=== PATIENT | male | born 1950 | race Caucasian/White ===

== ENCOUNTER 2017-11-14 06:34 | Inpatient (IN) ==
[~2017-11-14 06:34] MED LIST: Dextrose 50 % in Water (Vial) 30 ML, Sodium Bicarbonate 20 MEQ, Lidocaine 1% 5 ML, Insu... TH ONE; Dextrose 50 % in Water (Vial) 30 ML, Sodium Bicarbonate 20 MEQ, Potassium Chloride 15 M... TH ONE; Heparin 15,000 UNIT in 0.9 % Sodium Chloride 500 ML IV ONE; Insulin Human Regular 100 UNIT in 0.9 % Sodium Chloride 100 ML IV PRN; Norepinephrine 4 MG in D5% in Water 250 ML IVC PRN
[2017-11-14] MEDS ORDERED: Clindamycin 900 MG/50 ML 900 MG/50 ML IV.SOLN IVPB ONE (06:57)
[2017-11-14] MEDS ORDERED: Albuterol 2.5 MG/3 ML NEBULIZER IH ONE (06:57)
[2017-11-14] MEDS ORDERED: Famotidine 20 MG/2 ML VIAL ONE (07:00)
[2017-11-14] MEDS ORDERED: *HR* Rocuronium Bromide 50 MG/5 ML VIAL ONE (07:00)
[2017-11-14] MEDS ORDERED: *HR* PHENYLEPHRINE 1,000 MCG/10 ML SYRINGE IVP ONE (07:00)
[2017-11-14] MEDS ORDERED: *HR* Etomidate 20 MG/10 ML AMPUL IVP ONE (07:00)
[2017-11-14] MEDS ORDERED: *HR* Midazolam HCl 5 MG/5 ML VIAL IVP ONE ×2 (07:07→11:11)
[2017-11-14] MEDS ORDERED: Tranexamic Acid 1,000 MG/10 ML VIAL ONE ×2 (07:07→10:16)
[2017-11-14] MEDS ORDERED: Protamine Sulfate 250 MG/25 ML VIAL IVP ONE (07:07)
[2017-11-14] MEDS ORDERED: *HR* FentaNYL (PF) 1,000 MCG/20 ML VIAL ONE (07:07)
[2017-11-14] MEDS: Chlorhexidine Rinse 15 ML MOUTHWASH MM SCH ×3 (07:08→21:52)
[2017-11-14] MEDS: Ringers Solution, Lactated 1,000 ML IVC SCH (07:09)
[2017-11-14] MEDS ORDERED: Nitroglycerin 25 MG/250 ML INFUS..BTL IVC ONE (07:11)
[2017-11-14] MEDS ORDERED: *HR* Phenylephrine 10 MG/ML VIAL IVC ONE (07:14)
[2017-11-14] MEDS ORDERED: *HR* Heparin 10,000 UNIT/10 ML VIAL IV ONE (07:14)
[2017-11-14] MEDS ORDERED: *HR* Magnesium Sulfate 2 GM/50 ML PIGGYBACK IVPB ONE (07:14)
[2017-11-14] MEDS ORDERED: Mannitol 25% vial 12.5 GM/50 ML VIAL IVP ONE (07:14)
[2017-11-14] MEDS ORDERED: Clindamycin 600 MG/50 ML IV.SOLN IVPB ONE (07:14)
[2017-11-14] MEDS ORDERED: Albumin Human 25% 25 GM/100 ML IV.SOLN IV ONE (07:14)
[2017-11-14] MEDS ORDERED: Lidocaine 2% Syringe 100 MG/5 ML IV ONE (07:14)
[2017-11-14] MEDS ORDERED: Tranexamic Acid 1,000 MG/10 ML VIAL IVPB ONE (07:14)
--- NOTE | 2017-11-14 07:32 | Anesthesia Evaluation PreOp ---
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 (left foot drop) Other Medical History: Denies Any Significant HX Anesthesia History: No Prior Anesthetic Complications, Past Anesthesia (tonsils) Alcohol Use: none Drug use: unknown Medications and Allergies Amlodipine Besylate 10 mg PO DAILY 11/04/17 [History] Aspirin [Lo-Dose Aspirin EC] 81 mg PO DAILY 11/04/17 [History] Clopidogrel [Plavix] 75 mg PO DAILY 11/04/17 [History] Lisinopril [Zestril] 40 mg PO DAILY 11/04/17 [History] Metoprolol XL (24 HR) Succ [Toprol XL] 50 mg PO DAILY 11/04/17 [History] hydroCHLOROthiazide [Hydrochlorothiazide] 25 mg PO DAILY 11/04/17 [History] Nitroglycerin [Nitrostat] 0.4 mg SL Q5M PRN MDD 3 DOSES CALL 911 11/14/17 [ History] Rosuvastatin [Crestor] 20 mg PO HS 11/14/17 [History] 3 Allergy/AdvReac Type Severity Reaction Status Date / Time Penicillins [PCN] AdvReac Rash Verified 11/14/17 07:03 - Meds/Allergy Pre-op Review Medications Reviewed: Yes Allergies Reviewed: Yes If Beta Blockers taken, Date/Time (Last Dose taken): today 0500 Anesthesia Results - Labs Laboratory Tests 11/02/17 11/02/17 14:28 14:28 Hgb 14.9 Hct 44.0 Plt Count 228 Sodium 140 Potassium 3.6 BUN 17 Creatinine 0.90 - Imaging Additional studies: cath: Impressions: There is severe three vessel coronary artery disease. The left ventricle is normal and has normal contractility EF 55% There is fair quality collateral vessel/vessels from the Distal Circumflex to the Right PDA that are visualized. Stent placed from a prior procedure in the Mid LAD is is patent. echo: Impressions: LVEF 55%. Mild LV segmental wall motion abnormality. Mildly dilated left ventricle. Moderate left ventricular diastolic dysfunction. Normal right ventricular structure and function. Mild mitral regurgitation. No pulmonary hypertension. Mild elevation of RA pressures. 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
--- NOTE | 2017-11-14 07:35 | History & Physical Report ---
Date of Encounter: 11/14/17 Time of Encounter: 07:35 24 Hour HP Update - Instructions Instructions: If the History and Physical is less than 30 days old and was completed prior to A.M. admission and or procedure and has NOT been updated on calendar day of procedure please complete this update prior to performing procedure. - Update Patient reports changes in Medical Condition: No Changes in examination, assessment, or condition: No Changes in Medication: No Preop tests/diagnostics Reviewed: Yes Pre-Op MRSA Screen: Negative Surgery Remains Indicated: Yes Consent for Planned Operative Procedure(s) Verified: Yes - Pre-Operative Checklist Preoperative Checklist Indicated: Yes Prophylactic Antibiotic Ordered: Yes Home Medications Include Beta Toby: Yes Beta Toby Taken Today (Day of Surgery): Yes Beta Toby Taken Yesterday (Day Prior to Surgery): Yes Is VTE Prophylaxis Indicated?: Yes
[2017-11-14] MEDS ORDERED: Verapamil 5 MG/2 ML VIAL ONE (07:44)
[2017-11-14 08:33] LABS: ABG Base Excess 2 mEq/L (-2 to 3); ABG Chloride 106 mEq/L (98-107); ABG Glucose 128 mg/dL (60-95); ABG HCO3 29 mEq/L (21-27); ABG Ionized Calcium 1.16 mmol/L (1.15-1.35); ABG Oxygen Saturation 100 % (95-98); ABG PCO2 49 mmHg (35-45); ABG PH 7.37 pH Units (7.32-7.45); ABG PO2 195 mmHg (85-104); ABG TCO2 30 mEq/L (20-26)
--- NOTE | 2017-11-14 09:19 | Anesthesia Procedures ---
Date of Encounter: 11/14/17 Time of Encounter: 08:05 Procedures: Anesthesia - Arterial Line Consent obtained: written consent Time out performed: Yes Sedation: Versed (mg): 2 Sedation: Fentanyl (mcg): 100 Supplemental Oxygen via Nasal Cannula (L/min): 2 Local Anesthetic: Lidocaine 1% Amount of Anesthetic used (mls): 1 Size (Gauge): 20 Length (inches): 5 Technique Used: sterile prep, guide wire technique, direct puncture technique Post-Procedure: line taped into place, dry sterile dressing placed Patient tolerated procedure: well, no complications Complications: none Site: Radial L - Central Line Placement Right IJ Consent obtained: written consent Time out performed: Yes Patient placed on monitor/pulse ox: Yes prep: mask, gown, gloves Central line prep: Chlorhexidine scrub Ultrasound used for placement: Yes Technique: Seldinger Lumen Inserted: Introducer Post procedure: sutured in place, good blood return, all ports aspirated, flushed, capped, sterile dressing applied Patient tolerated procedure: well, no complications Complications: none (INTRODUCER PLACED EASILY, SWAN PLACED WITHOUT ARRYTHMIA, WEDGE APPROX. 55CM)
[2017-11-14 09:35] LABS: ABG Base Excess -2 mEq/L (-2 to 3); ABG Chloride 106 mEq/L (98-107); ABG Glucose 161 mg/dL (60-95); ABG HCO3 23 mEq/L (21-27); ABG Ionized Calcium 0.91 mmol/L (1.15-1.35); ABG Oxygen Saturation 99 % (95-98); ABG PCO2 36 mmHg (35-45); ABG PH 7.41 pH Units (7.32-7.45); ABG PO2 115 mmHg (85-104); ABG TCO2 24 mEq/L (20-26)
[2017-11-14 10:13] LABS: ABG Base Excess 4 mEq/L (-2 to 3); ABG Chloride 96 mEq/L (98-107); ABG Glucose 208 mg/dL (60-95); ABG HCO3 29 mEq/L (21-27); ABG Ionized Calcium 0.96 mmol/L (1.15-1.35); ABG PCO2 40 mmHg (35-45); ABG PH 7.46 pH Units (7.32-7.45); ABG PO2 > 630 mmHg (85-104); ABG TCO2 30 mEq/L (20-26)
[2017-11-14 10:55] LABS: ABG Base Excess 4 mEq/L (-2 to 3); ABG Chloride 95 mEq/L (98-107); ABG Glucose 188 mg/dL (60-95); ABG HCO3 28 mEq/L (21-27); ABG Ionized Calcium 0.97 mmol/L (1.15-1.35); ABG Oxygen Saturation 100 % (95-98); ABG PCO2 42 mmHg (35-45); ABG PH 7.43 pH Units (7.32-7.45); ABG PO2 586 mmHg (85-104); ABG TCO2 30 mEq/L (20-26)
[2017-11-14 11:26] LABS: ABG Base Excess 1 mEq/L (-2 to 3); ABG Chloride 100 mEq/L (98-107); ABG Glucose 149 mg/dL (60-95); ABG HCO3 25 mEq/L (21-27); ABG Ionized Calcium 1.21 mmol/L (1.15-1.35); ABG Oxygen Saturation 96 % (95-98); ABG PCO2 40 mmHg (35-45); ABG PH 7.41 pH Units (7.32-7.45); ABG PO2 78 mmHg (85-104); ABG TCO2 26 mEq/L (20-26)
[2017-11-14] MEDS ORDERED: Potassium Chloride 40 MEQ/200 ML BAG IVPB PRN (11:44)
[2017-11-14] MEDS ORDERED: Insulin Regular, Human 100 UNIT/ML IV PRN (11:44)
[2017-11-14] MEDS ORDERED: Ondansetron 4 MG/2 ML VIAL IVP PRN (11:44)
[2017-11-14] MEDS ORDERED: Acetaminophen 325 MG TABLET PO PRN (11:44)
[2017-11-14] MEDS ORDERED: *HR* Promethazine 25 MG/ML VIAL IVP PRN (11:44)
[2017-11-14] MEDS ORDERED: *HR* Dextrose 50 % in Water (Syg) 50 ML SYRINGE IVP PRN (11:44)
[2017-11-14] MEDS ORDERED: Insulin Human Regular 100 UNIT in 0.9 % Sodium Chloride 100 ML IVC SCH (11:45)
[2017-11-14] MEDS ORDERED: Norepinephrine 4 MG in D5% in Water 250 ML IVC SCH (11:45)
[2017-11-14 12:12] LABS: ABG Base Excess 2 mEq/L (-2 to 3); ABG HCO3 27 mEq/L (21-27); ABG Oxygen Saturation 99 % (95-98); ABG PCO2 40 mmHg (35-45); ABG PH 7.44 pH Units (7.32-7.45); ABG PO2 122 mmHg (85-104); ABG TCO2 28 mEq/L (20-26); Blood Gas Modality VC; Blood Gas PEEP 5 cm H2O; Blood Gas Respiration Rate 10; Blood Gas VT 700 cc
[2017-11-14 12:25] LABS: Basophils # 0.1 K/mcL (0.0-0.2); Basophils % 0.4 %; Eosinophils # 0.3 K/mcL (0.0-0.6); Eosinophils % 1.8 %; Hematocrit 33.9 % (37.5-50.1); Hemoglobin 11.7 g/dL (12.9-16.9); Immature Granulocytes % 0.7 % (0-4); Lymphocytes # 2.5 K/mcL (0.6-4.6); Lymphocytes % 16.1 %; Mean Corpuscular HGB Conc 34.5 g/dL (31.6-35.5); Mean Corpuscular Volume 89.7 fL (83.0-100.0); Mean Platelet Volume 9.7 fL (9.4-12.4); Monocytes # 1.1 K/mcL (0.0-1.3); Monocytes % 7.3 %; Neutrophils # 11.3 K/mcL (1.6-8.9); Platelet Count 145 K/mcL (140-400); Red Blood Count 3.78 M/mcL (4.19-5.50); Red Cell Distribution Width 13.3 % (11.5-14.5); Segmented Neutrophils % 73.7 %
[2017-11-14] MEDS: 0.9 % Sodium Chloride 1,000 ML IVC SCH (12:30)
[2017-11-14] MEDS: Nitroglycerin 25 MG/250 ML INFUS..BTL IVC SCH (12:31)
[2017-11-14 12:34] LABS: Activated Partial Thrombo Time 29.5 Seconds (26.0-36.0); INR 1.5
[2017-11-14 12:39] LABS: BUN/Creatinine Ratio 15 (6-26); Blood Urea Nitrogen 13 mg/dL (8-23); Calcium 8.7 mg/dL (8.6-10.3); Carbon Dioxide 27 mEq/L (23-29); Chloride 105 mEq/L (98-107); Glucose 85 mg/dL (70-105); Magnesium 2.5 mg/dL (1.6-2.6); Osmolality,Calculated 287 (280-300); Potassium 3.3 mEq/L (3.5-5.1); Sodium 139 mEq/L (136-145); eGFR For Non-African Americans > 60 (> 60)
[2017-11-14] MEDS: *HR* FentaNYL (PF) 100 MCG/2 ML VIAL IVP PRN ×5 (13:17→23:51)
--- NOTE | 2017-11-14 13:45 | Operative Note ---
Date of procedure: 11/14/17 Was there an student assistant present: Yes Barber Stylist: Juanjose Larry Estimated blood loss (cc): 750 Specimen: none Condition: critical Disposition: ICU Procedure in Detail: Preoperative diagnosis. Coronary artery disease. Postoperative diagnosis. Same. Procedures. Coronary artery bypass grafting 3 with the left internal mammary artery to the LAD and a sequential saphenous vein graft to obtuse marginal branch #1 and obtuse marginal branch #3 of the circumflex coronary artery. Surgeon. Dr. Lisandro Bragg. The patient is a 67-year-old gentleman with a history of diabetes. He presented with coronary artery disease and was referred for surgery. He was brought to the operating room where he he was prepped and draped in standard fashion. The right greater saphenous vein was harvested from below the right knee to the right groin. This was done through 2 small incisions using the scope. These incisions were subsequently closed using a deep layer of 0 Vicryl and a 2-0 Vicryl subcuticular stitch. Standard median sternotomy was performed. The left internal mammary artery retractor was inserted and the left internal mammary artery was harvested in standard fashion using the Bovie electrocoagulation. Following this, the mammary retractor was removed and the standard sternal music agent was inserted. Pericardium was opened in the midline and suspended with 2-0 silk stay sutures. Double pursestring of 200 Surgilon was placed in the aorta for the aortic cannulation site. Pursestring of 20 Surgilon was placed in the right atrial appendage for the venous uptake. The patient was heparinized. The aorta was cannulated without difficulty. 2 stage venous uptake cannula was inserted through the right atrial appendage. A pursestring of 3-0 silk was placed in the aorta and the cardioplegia needle was inserted through here. This was also used is an active and passive aortic vent. The patient was placed on cardiopulmonary bypass and cooled to 34.8 degrees. At this point, the aorta was crossclamped and a liter of cardioplegia was given. Attention was first turned to the circumflex. Obtuse marginal branch #3 was dissected free with the Cahto blade and opened with the Cahto blade and the Elias scissors. This had a lumen of 1-1/2 mm and was relatively free of disease. A standard end-to- side anastomosis was constructed using the saphenous vein and a 7-0 Prolene. When this is completed, the patient received an additional dose of antegrade cardioplegia. Obtuse marginal branch #1 of the circumflex was dissected free with the Cahto blade and opened with the Cahto blade and the Elias scissors. The saphenous vein was distended and a hole was made in its side using a #11 blade. A [id number] anastomosis was constructed using the saphenous vein and a 7-0 Prolene. Thus the graft went from the aorta to obtuse marginal branch #1 of the circumflex and from there to obtuse marginal branch #3 of the circumflex. At this point, the patient received the last dose of antegrade cardioplegia. I dissected the LAD distal to the stent. It was opened with a Cahto blade and the Elias scissors and was found to have moderate to severe diffuse disease. A 1 probe passed proximally to the area of the stent and distally to the apex of the heart. A standard end-to-side anastomosis was constructed using the mammary artery and a 7-0 Prolene. When this is completed , the previously placed bulldog clamp was removed and hemostasis was good. Pedicles tacked surface of heart using 2 interrupted 5-0 silk sutures. Cross- clamp was removed and rewarming was begun. Total cross-clamp time was 47 minutes. A side-biting clamp was placed on the aorta and the cardioplegia needle was removed. A hole was made in the aorta using the Cahto blade and the 4.4 mm aortic punch. A standard end-to-side anastomosis was constructed using the saphenous vein and a 5-0 Prolene. When this is completed, the side- biting clamp was removed. The graft was de-aired is #25-gauge needle and the previously placed bulldog clamp was removed. The proximal anastomosis was marked with a marker from [employer]. Distal anastomoses were inspected and found to be hemostatic. I did place some FloSeal and fibrillar around the distal and proximal anastomoses. A pair of ventricular pacing wires was left. A total of 3 chest tubes were left. A 32 right angle chest tube to the pericardial well. A 32 right lateral chest tube to the left pleural space. A 42 mediastinal chest tube. The patient was weaned from bypass requiring no pressors for support. He was decannulated and protamine was given. Hemostasis was good and the hemodynamics were good. Pericardium was left open. Sternum was closed with #7 sternal wires in simple and [id number] fashion. Fascia was run with #1 Vicryl. We did use platelet rich and platelet poor plasma on the sternum and tissues above the sternum. Subcutaneous tissues were closed with a 2-0 Vicryl. Skin was closed with a 3-0 Vicryl subcuticular stitch. The patient tolerated the procedure well and was returned intensive care unit in satisfactory and stable condition. Total bypass time was 70 minutes. Total cross-clamp time was 47 minutes. He had been cooled to 34.8 degrees.
[2017-11-14 16:10] LABS: ABG Base Excess 2 mEq/L (-2 to 3); ABG HCO3 25 mEq/L (21-27); ABG Oxygen Saturation 98 % (95-98); ABG PCO2 32 mmHg (35-45); ABG PO2 87 mmHg (85-104); ABG TCO2 26 mEq/L (20-26); Blood Gas Modality VC; Blood Gas PEEP 5 cm H2O; Blood Gas Respiration Rate 10; Blood Gas VT 700 cc
[2017-11-14] MEDS: Clindamycin 900 MG/50 ML 900 MG/50 ML IV.SOLN IVPB SCH ×2 (17:04→23:51)
[2017-11-14] MEDS: *HR* OxyCODONE/APAP 5/325 TABLET PO PRN ×2 (17:27→21:51)
[2017-11-14 18:01] LABS: ABG Base Excess 3 mEq/L (-2 to 3); ABG HCO3 27 mEq/L (21-27); ABG Oxygen Saturation 95 % (95-98); ABG PCO2 40 mmHg (35-45); ABG PH 7.44 pH Units (7.32-7.45); ABG PO2 76 mmHg (85-104); ABG TCO2 28 mEq/L (20-26); Blood Gas Modality CPAP/PS; Blood Gas PEEP 5 cm H2O; Blood Gas Pressure Support 10 cm H2O
[2017-11-14] MEDS: niCARdipine 40 MG/200 ML MLS IVC SCH ×2 (19:21→19:22)
[2017-11-14 19:27] LABS: ABG Base Excess 3 mEq/L (-2 to 3); ABG HCO3 27 mEq/L (21-27); ABG Oxygen Saturation 96 % (95-98); ABG PCO2 41 mmHg (35-45); ABG PH 7.44 pH Units (7.32-7.45); ABG PO2 76 mmHg (85-104); ABG TCO2 29 mEq/L (20-26)
[2017-11-15] MEDS: *HR* FentaNYL (PF) 100 MCG/2 ML VIAL IVP PRN ×3 (01:43→06:16)
[2017-11-15] MEDS: 0.9 % Sodium Chloride 1,000 ML IVC SCH (02:18)
[2017-11-15] MEDS: Nitroglycerin 25 MG/250 ML INFUS..BTL IVC SCH ×2 (02:18→03:27)
[2017-11-15] MEDS: Ringers Solution, Lactated 1,000 ML IVC SCH (02:32)
[2017-11-15] MEDS: niCARdipine 40 MG/200 ML MLS IVC SCH (02:32)
[2017-11-15] MEDS: *HR* OxyCODONE/APAP 5/325 TABLET PO PRN ×5 (02:33→20:02)
[2017-11-15 04:27] LABS: Basophils % 0.2 %; Hematocrit 32.6 % (37.5-50.1); Hemoglobin 10.9 g/dL (12.9-16.9); Immature Granulocytes % 0.4 % (0-4); Lymphocytes # 1.1 K/mcL (0.6-4.6); Lymphocytes % 7.1 %; Mean Corpuscular HGB Conc 33.4 g/dL (31.6-35.5); Mean Corpuscular Volume 89.8 fL (83.0-100.0); Mean Platelet Volume 9.8 fL (9.4-12.4); Monocytes # 1.4 K/mcL (0.0-1.3); Monocytes % 8.6 %; Neutrophils # 13.2 K/mcL (1.6-8.9); Platelet Count 183 K/mcL (140-400); Red Blood Count 3.63 M/mcL (4.19-5.50); Red Cell Distribution Width 13.8 % (11.5-14.5); Segmented Neutrophils % 83.7 %
[2017-11-15 04:35] LABS: INR 1.2; Prothrombin Time 13.5 Seconds (9.4-12.1)
[2017-11-15 04:44] LABS: BUN/Creatinine Ratio 16 (6-26); Blood Urea Nitrogen 18 mg/dL (8-23); Calcium 8.4 mg/dL (8.6-10.3); Carbon Dioxide 24 mEq/L (23-29); Chloride 107 mEq/L (98-107); Glucose 161 mg/dL (70-105); Magnesium 2.1 mg/dL (1.6-2.6); Osmolality,Calculated 291 (280-300); Potassium 3.6 mEq/L (3.5-5.1); Sodium 138 mEq/L (136-145); eGFR For Non-African Americans > 60 (> 60)
[2017-11-15] MEDS ORDERED: 0.9 % Sodium Chloride 500 ML ONE (06:07)
--- NOTE | 2017-11-15 07:32 | Cardiothoracic Progress Note ---
Date of Encounter: 11/15/17 Time of Encounter: 07:29 - Assessment and plan (1) Coronary artery disease Current Visit: No Status: Acute The assessment and plan as outlined above was discussed with the patient and/or family members who expressed understanding and agreement. All questions were answered. The chest tubes and pacing wires were removed. We will discontinue the [place]- Juma catheter, IV fluids, arterial line and Caputo. We will check a stat portable chest x-ray. We will transfer the patient to the floor when a bed becomes available. We will give 1 dose of Lasix IV. Qualifiers: - Subjective Interval history: The patient is extubated and complains of mild postoperative pain. Vital Signs, Last 4 Hours Temp Pulse Resp BP Pulse Ox 11/15/17 07:03 99.2 F 92 14 121/7 91 11/15/17 06:00 99.2 F 93 16 119/62 90 11/15/17 05:00 99.2 F 89 16 116/59 95 11/15/17 04:00 99.2 F 97 16 118/61 92 11/15/17 03:39 16 114/62 92 Oxgyen Flow Rate Oxygen Flow Rate (LPM) 4 Clinical Data, last 8 Hours Output, Chest Tube Drainage 0 Amount [Mediastinal #3] Output, Chest Tube Drainage 0 Amount [Mediastinal #3] Output, Chest Tube Drainage 0 Amount [Mediastinal #3] Output, Chest Tube Drainage 14 Amount [Mediastinal #3] Output, Chest Tube Drainage 7 Amount [Mediastinal #3] Output, Chest Tube Drainage 3 Amount [Mediastinal #3] Output, Chest Tube Drainage 3 Amount [Mediastinal #3] Output, Chest Tube Drainage 22 Amount [Mediastinal #2] Output, Chest Tube Drainage 0 Amount [Mediastinal #2] Output, Chest Tube Drainage 4 Amount [Mediastinal #2] Output, Chest Tube Drainage 6 Amount [Mediastinal #2] Output, Chest Tube Drainage 20 Amount [Mediastinal #2] Output, Chest Tube Drainage 12 Amount [Mediastinal #2] Output, Chest Tube Drainage 10 Amount [Mediastinal #2] Output, Chest Tube Drainage 0 Amount [Mediastinal #1] Output, Chest Tube Drainage 0 Amount [Mediastinal #1] Output, Chest Tube Drainage 0 Amount [Mediastinal #1] Output, Chest Tube Drainage 6 Amount [Mediastinal #1] Output, Chest Tube Drainage 4 Amount [Mediastinal #1] Output, Chest Tube Drainage 0 Amount [Mediastinal #1] Output, Chest Tube Drainage 0 Amount [Mediastinal #1] Weight 11/13/17 11/14/17 11/15/17 23:59 23:59 23:59 Weight 99.79 kg 100.4 kg Lungs are clear to percussion and auscultation. Heart is in a normal sinus rhythm. All incisions are healing well without signs of infection and the sternum is stable. Chest x-ray shows no acute process. - Labs 11/15/17 04:05 11/15/17 04:05 Lab Results, Last 24 hours 11/14/17 11/14/17 11/14/17 12:05 12:05 12:05 WBC 15.3 H Hgb 11.7 L Hct 33.9 L Plt Count 145 INR 1.5 APTT 29.5 Sodium 139 Potassium 3.3 L Chloride 105 Carbon Dioxide 27 BUN 13 Creatinine 0.88 Glucose 85 Calcium 8.7 Magnesium 2.5 11/14/17 11/15/17 11/15/17 16:03 04:05 04:05 WBC 15.7 H Hgb 10.9 L Hct 32.6 L Plt Count 183 INR 1.2 APTT 27.0 Sodium Potassium 3.1 L Chloride Carbon Dioxide BUN Creatinine Glucose Calcium Magnesium 11/15/17 04:05 WBC Hgb Hct Plt Count INR APTT Sodium 138 Potassium 3.6 Chloride 107 Carbon Dioxide 24 BUN 18 Creatinine 1.13 Glucose 161 H Calcium 8.4 L Magnesium 2.1 - VTE Documentation of Mechanical Device: Graduated compression elastic hosiery Consult Discharge Plan - Plan Referrals: Pedro Valdez CNP [Primary Care Provider] -
[2017-11-15] MEDS ORDERED: Furosemide 20 MG/2 ML VIAL IVP ONE (07:34)
[2017-11-15] MEDS: Chlorhexidine Rinse 15 ML MOUTHWASH MM SCH ×4 (07:53→20:03)
[2017-11-15] MEDS ORDERED: Ondansetron 4 MG/2 ML VIAL IVP PRN (08:21)
[2017-11-15] MEDS ORDERED: *HR* Dextrose 50 % in Water (Syg) 50 ML SYRINGE IVP PRN (08:21)
[2017-11-15] MEDS ORDERED: *HR* Promethazine 25 MG/ML VIAL IVP PRN (08:21)
[2017-11-15] MEDS ORDERED: Acetaminophen 325 MG TABLET PO PRN (08:21)
[2017-11-15] MEDS ORDERED: Nitroglycerin 0.4 MG TAB.SUBL SL PRN (08:21)
[2017-11-15] MEDS ORDERED: D5% in Water 1,000 ML IVC PRN (08:21)
[2017-11-15] MEDS ORDERED: Dextrose Gel 15 GM/37.5 ML TUBE PO PRN ×2 (08:21)
[2017-11-15] MEDS: Metoprolol XL (24 HR) Succ 50 MG TAB.ER.24H PO SCH (08:40)
[2017-11-15] MEDS: hydroCHLOROthiazide 25 MG TABLET PO SCH (08:40)
[2017-11-15] MEDS: Aspirin Enteric Coated 81 MG Tablet PO SCH (08:40)
[2017-11-15] MEDS: amLODIPine 5 MG TABLET PO SCH (08:40)
[2017-11-15] MEDS: Lisinopril 20 MG TABLET PO SCH (08:40)
[2017-11-15] MEDS: Insulin LISPRO 300 UNITS/3 ML VIAL SQ SCH ×3 (12:37→21:45)
--- NOTE | 2017-11-15 15:07 | Anesthesia Evaluation Post Op ---
Date of Encounter: 11/15/17 Time of Encounter: 12:00 - Vital Signs Vital Signs: Selected Entries 11/15/17 11:26 11/15/17 12:00 Temperature 99.0 F Pulse Rate 92 Respiratory Rate 16 Blood Pressure 124/86 O2 Sat by Pulse Oximetry 92 Oxygen Flow Rate (LPM) 4 - Lungs Lungs: Clear Ascult./Percussion - Airway Airway: Non-obstructed - Cardiovascular Regular Rate - Mental Status Mental Status: Alert & Oriented, Answers Appropriately - Pain Pain Scale: 4 Pain Scale used: Numeric (1 - 10) - Nausea Vomiting Nausea Vomiting: Not Present - Hydration Hydration: Tolerates oral liquids, Caputo catheter Notes: 11/15/17 15:06 patient sitting up in chair. No apparent anesthesia complications.
[2017-11-15] MEDS: *HR* Heparin 5,000 UNIT/ML VIAL SQ SCH (17:54)
[2017-11-15] MEDS ORDERED: Amiodarone Premix 150 MG/100 ML BAG IVPB ONE (23:18)
[2017-11-15] MEDS ORDERED: Amiodarone Premix 360 MG/200 ML BAG IVC ONE (23:30)
[2017-11-16 03:36] LABS: Basophils % 0.1 %; Hematocrit 32.7 % (37.5-50.1); Hemoglobin 11.3 g/dL (12.9-16.9); Immature Granulocytes % 0.7 % (0-4); Lymphocytes # 1.9 K/mcL (0.6-4.6); Lymphocytes % 9.3 %; Mean Corpuscular HGB Conc 34.6 g/dL (31.6-35.5); Mean Corpuscular Hemoglobin 31.3 pg (28.0-33.3); Mean Corpuscular Volume 90.6 fL (83.0-100.0); Mean Platelet Volume 10.2 fL (9.4-12.4); Monocytes # 1.7 K/mcL (0.0-1.3); Monocytes % 8.4 %; Neutrophils # 16.4 K/mcL (1.6-8.9); Platelet Count 181 K/mcL (140-400); Red Blood Count 3.61 M/mcL (4.19-5.50); Red Cell Distribution Width 14.1 % (11.5-14.5); Segmented Neutrophils % 81.5 %
[2017-11-16 04:04] LABS: BUN/Creatinine Ratio 21 (6-26); Blood Urea Nitrogen 23 mg/dL (8-23); Calcium 8.6 mg/dL (8.6-10.3); Carbon Dioxide 27 mEq/L (23-29); Chloride 100 mEq/L (98-107); Glucose 161 mg/dL (70-105); Osmolality,Calculated 285 (280-300); Potassium 3.5 mEq/L (3.5-5.1); Sodium 134 mEq/L (136-145); eGFR For Non-African Americans > 60 (> 60)
[2017-11-16] MEDS: *HR* OxyCODONE/APAP 5/325 TABLET PO PRN ×3 (04:50→20:38)
[2017-11-16] MEDS: *HR* Heparin 5,000 UNIT/ML VIAL SQ SCH ×2 (05:59→18:12)
[2017-11-16] MEDS: Amiodarone Premix 360 MG/200 ML BAG IVC SCH ×2 (05:59→18:08)
[2017-11-16] MEDS: hydroCHLOROthiazide 25 MG TABLET PO SCH (07:51)
[2017-11-16] MEDS: Aspirin Enteric Coated 81 MG Tablet PO SCH (07:51)
[2017-11-16] MEDS: Chlorhexidine Rinse 15 ML MOUTHWASH MM SCH ×2 (07:51→20:38)
[2017-11-16] MEDS: Insulin LISPRO 300 UNITS/3 ML VIAL SQ SCH ×4 (07:54→20:47)
--- NOTE | 2017-11-16 09:26 | Cardiothoracic Progress Note ---
Date of Encounter: 11/16/17 Time of Encounter: 09:26 - Assessment and plan (1) Coronary artery disease Current Visit: No Status: Acute The patient is recovering well from his CABG 3. He developed transient atrial fibrillation last night which converted to normal sinus rhythm on an amiodarone drip. The amiodarone drip will be continued today and he will be transitioned to oral amiodarone tomorrow. The patient's supplemental oxygen will be weaned today as tolerated. His activity will be increased and he will begin ambulating and The assessment and plan as outlined above was discussed with the patient and/or family members who expressed understanding and agreement. All questions were answered. Qualifiers: - Subjective Procedure(s) Performed: POD#2 S/P CABG3 Interval history: The patient remained hemodynamic stable overnight. He developed transient atrial fibrillation which converted to normal sinus rhythm with an amiodarone drip. He has no complaints. Vital Signs, Last 4 Hours Temp Pulse Resp BP Pulse Ox 11/16/17 08:01 16 90 11/16/17 07:12 98.7 F 91 22 108/64 88 11/16/17 06:30 85 110/62 11/16/17 05:30 87 98/65 Oxgyen Flow Rate Oxygen Flow Rate (LPM) 8 Clinical Data, last 8 Hours Output, Urine Amount 450 Weight 11/14/17 11/15/17 11/16/17 23:59 23:59 23:59 Weight 99.79 kg 100.4 kg 100.2 kg - Physical Examination General: Conversant, No Apparent Distress Neck: No JVD, Normal carotid pulses Cardiac: Reg Rate and Rhythm, Normal S1 and S2, No Murmur Incision: No signs of infection, Dry/intact dressing Sternum: Stable Lungs: Normal Breath Sounds, No Wheeze, Rales, Rhonchi Neuro: Alert and responsive, No focal deficits noted Vascular: Normal capillary refill Extremities: No Clubbing, No Cyanosis, No Edema - Labs 11/16/17 03:20 11/16/17 03:20 Lab Results, Last 24 hours 11/16/17 11/16/17 03:20 03:20 WBC 20.1 H Hgb 11.3 L Hct 32.7 L Plt Count 181 Sodium 134 L Potassium 3.5 Chloride 100 Carbon Dioxide 27 BUN 23 Creatinine 1.11 Glucose 161 H Calcium 8.6 - VTE Documentation of Mechanical Device: Graduated compression elastic hosiery Consult Discharge Plan - Plan Referrals: Pedro Valdez CNP [Primary Care Provider] - 11/28/17 1:15 pm ( ) Lisandro Bragg MD [Partnered Physician] - 12/15/17 1:00 pm Luis Alva DO [Partnered Physician] - (Office will call patient at home with follow up appointment)
[2017-11-16] MEDS: Lisinopril 20 MG TABLET PO SCH (11:59)
[2017-11-16] MEDS: Metoprolol XL (24 HR) Succ 50 MG TAB.ER.24H PO SCH (11:59)
[2017-11-16] MEDS: amLODIPine 5 MG TABLET PO SCH (11:59)
[2017-11-16] MEDS ORDERED: Furosemide 20 MG/2 ML VIAL IVP ONE ×2 (15:51→15:55)
--- NOTE | 2017-11-16 16:36 | Pulmonology Consult Note ---
<Josh Alvarenga - Last Filed: 11/16/17 17:24> Date of Encounter: 11/16/17 Time of Encounter: 16:36 Assessment and Plan (1) Acute respiratory failure with hypoxemia Current Visit: Yes Status: Acute Likely secondary to pneumonia. We will place the patient on BiPAP to maintain oxygen saturation above 88%. (2) Pneumonia Current Visit: Yes Status: Acute Possible pneumonia seen on chest x-ray. Patient is also febrile. Patient has a white count however patient recently had surgery so unclear if this is related to infection. No evidence of sepsis at this time. Lactic acid is normal. Blood culture and sputum culture have been obtained. We will start Zosyn 3.375 g every 8 hours when necessary. Encourage incentive spirometry. Qualifiers: Pneumonia type: due to unspecified organism Laterality: unspecified laterality Lung location: unspecified part of lung Qualified Code(s): J18.9 - Pneumonia, unspecified organism (3) COPD exacerbation Current Visit: Yes Status: Acute Patient has never been formally diagnosed with COPD however does have a significant smoking history and has wheezing on exam. Likely due to pneumonia. Will scheduled bronchodilators and initiate Solu-Medrol 60 mg every 8 hours. Antibiotics as above. Continue to encourage smoking cessation recommend outpatient PFTs (4) Coronary artery disease Current Visit: No Status: Acute Status post coronary artery bypass grafting. further management per cardiothoracic surgery. Qualifiers: Coronary Disease-Associated Artery/Lesion type: [place] artery [place] vs. transplanted heart: [place] heart Associated angina: without angina Qualified Code(s): I25.10 - Atherosclerotic heart disease of [place] coronary artery without angina pectoris History of Present Illness Consult date: 11/16/17 Requesting physician: Vanessa Butcher Reason for consult: hypoxemia Chief complaint: Dyspnea History of present illness: Patient is 67-year-old male with history of coronary disease status post recent coronary artery bypass grafting who is developed worsening hypoxia. Patient underwent bypass grafting on 11/14/2017 and today developed worsening shortness of breath with hypoxia. He also reports a cough with brown productive sputum. He reports fevers and chills. Patient reports that he is a former smoker and quit just days before surgery. Past Med Surg Social Fam HX - Past Medical History Medical history: coronary artery disease, hyperlipidemia, hypertension, myocardial infarction Additional medical history: DJD, LEFT FOOT DROP, SMOKER Psychiatric history: no psych history - Past Surgical History Surgical History: tonsilectomy Additional surgical history: CARDIAC STENTS X 5 2006 AT [facility], TONSILLECTOMY , LEFT CATARACT - Social History Smoking Status: Current every day smoker Packs per day: 1ppd Smokeless Tobacco Status: Yes Alcohol use: none Drug use: unknown Medications and Allergies Amlodipine Besylate 10 mg PO DAILY 11/04/17 [History] Aspirin [Lo-Dose Aspirin EC] 81 mg PO DAILY 11/04/17 [History] Clopidogrel [Plavix] 75 mg PO DAILY 11/04/17 [History] Lisinopril [Zestril] 40 mg PO DAILY 11/04/17 [History] Metoprolol XL (24 HR) Succ [Toprol XL] 50 mg PO DAILY 11/04/17 [History] hydroCHLOROthiazide [Hydrochlorothiazide] 25 mg PO DAILY 11/04/17 [History] Nitroglycerin [Nitrostat] 0.4 mg SL Q5M PRN MDD 3 DOSES CALL 911 11/14/17 [ History] Rosuvastatin [Crestor] 20 mg PO HS 11/14/17 [History] 3 Allergy/AdvReac Type Severity Reaction Status Date / Time Penicillins [PCN] AdvReac Rash Verified 11/14/17 07:03 All Systems: The remainder of the systems were reviewed and are negative - Constitutional Constitutional: fever(s) - Cardiovascular Cardiovascular: dyspnea, no chest pain - Respiratory Respiratory: cough, dyspnea Physical Examination Vital Signs: Vital Signs, Last 4 Hours Temp Pulse Resp BP Pulse Ox 11/16/17 16:09 101.1 F H 105 20 129/81 85 11/16/17 15:56 18 86 General appearance: no acute distress ENT: oropharynx moist Effort: mildly labored Auscultation: bilateral: diminished breath sounds (Bibasilar) Cardiovascular: irregular rhythm Gastrointestinal: normoactive bowel sounds, soft, non-tender Extremities: no edema, no clubbing normal mental status, non-focal exam Results - Laboratory Findings CBC and BMP: 11/16/17 03:20 11/16/17 03:20 ABG ABG pH 7.44 pH Units (7.32-7.45) 11/14/17 19:21 ABG pCO2 41 mmHg (35-45) 11/14/17 19:21 ABG pO2 76 mmHg (85-104) L 11/14/17 19:21 ABG O2 Saturation 96 % (95-98) 11/14/17 19:21 PT/INR, D-dimer PT 13.5 Seconds (9.4-12.1) H 11/15/17 04:05 Abnormal lab findings: Abnormal lab results WBC 20.1 K/mcL (4.3-11.1) H 11/16/17 03:20 RBC 3.61 M/mcL (4.19-5.50) L 11/16/17 03:20 Hgb 11.3 g/dL (12.9-16.9) L 11/16/17 03:20 Hct 32.7 % (37.5-50.1) L 11/16/17 03:20 Neutrophils # 16.4 K/mcL (1.6-8.9) H 11/16/17 03:20 Monocytes # 1.7 K/mcL (0.0-1.3) H 11/16/17 03:20 PT 13.5 Seconds (9.4-12.1) H 11/15/17 04:05 ABG pO2 76 mmHg (85-104) L 11/14/17 19:21 ABG Total CO2 29 mEq/L (20-26) H 11/14/17 19:21 ABG Hematocrit 26.0 % (37.5-50.1) L 11/14/17 11:20 Potassium 3.0 mEq/L (3.5-5.3) L 11/14/17 11:20 Glucose 149 mg/dL (60-95) H 11/14/17 11:20 Sodium 134 mEq/L (136-145) L 11/16/17 03:20 Glucose 161 mg/dL (70-105) H 11/16/17 03:20 POC Glucose 140 mg/dL (70-99) H 11/15/17 21:33 - Clinical Findings Intake & Output: Intake & Output 11/16/17 11/16/17 11/16/17 07:59 15:59 23:59 Intake Total 350 / 350 120 / 120 Output Total 450 / 450 225 / 225 Balance -100 / -100 120 / 120 -225 / -225 Weight 100.2 kg Consult Discharge Plan - Plan Referrals: Pedro Valdez CNP [Primary Care Provider] - 11/28/17 1:15 pm ( ) Lisandro Bragg MD [Partnered Physician] - 12/15/17 1:00 pm Luis Alva DO [Partnered Physician] - (Office will call patient at home with follow up appointment) <Daren Hunter - Last Filed: 11/16/17 17:45> Date of Encounter: 11/16/17 All Systems: The remainder of the systems were reviewed and are negative Physical Examination Vital Signs: Vital Signs, Last 4 Hours Temp Pulse Resp BP Pulse Ox 11/16/17 17:28 101.7 F H 11/16/17 17:05 21 119/65 91 11/16/17 16:09 101.1 F H 105 20 129/81 85 11/16/17 15:56 18 86 Results - Laboratory Findings CBC and BMP: 11/16/17 03:20 11/16/17 03:20 ABG ABG pH 7.44 pH Units (7.32-7.45) 11/14/17 19:21 ABG pCO2 41 mmHg (35-45) 11/14/17 19:21 ABG pO2 76 mmHg (85-104) L 11/14/17 19:21 ABG O2 Saturation 96 % (95-98) 11/14/17 19:21 PT/INR, D-dimer PT 13.5 Seconds (9.4-12.1) H 11/15/17 04:05 Abnormal lab findings: Abnormal lab results WBC 20.1 K/mcL (4.3-11.1) H 11/16/17 03:20 RBC 3.61 M/mcL (4.19-5.50) L 11/16/17 03:20 Hgb 11.3 g/dL (12.9-16.9) L 11/16/17 03:20 Hct 32.7 % (37.5-50.1) L 11/16/17 03:20 Neutrophils # 16.4 K/mcL (1.6-8.9) H 11/16/17 03:20 Monocytes # 1.7 K/mcL (0.0-1.3) H 11/16/17 03:20 PT 13.5 Seconds (9.4-12.1) H 11/15/17 04:05 ABG pO2 76 mmHg (85-104) L 11/14/17 19:21 ABG Total CO2 29 mEq/L (20-26) H 11/14/17 19:21 ABG Hematocrit 26.0 % (37.5-50.1) L 11/14/17 11:20 Potassium 3.0 mEq/L (3.5-5.3) L 11/14/17 11:20 Glucose 149 mg/dL (60-95) H 11/14/17 11:20 Sodium 134 mEq/L (136-145) L 11/16/17 03:20 Glucose 161 mg/dL (70-105) H 11/16/17 03:20 POC Glucose 140 mg/dL (70-99) H 11/15/17 21:33 - Microbiology Findings Microbiology Findings: Microbiology, Last 48 Hours 11/16/17 16:46 Blood Culture - Preliminary Peripheral Venipuncture Culture is incubating and being continuously monitored for growth. Final report to follow. 11/16/17 16:46 Blood Culture - Preliminary Peripheral Venipuncture Culture is incubating and being continuously monitored for growth. Final report to follow. - Clinical Findings Intake & Output: Intake & Output 11/16/17 11/16/17 11/16/17 07:59 15:59 23:59 Intake Total 350 / 350 120 / 120 Output Total 450 / 450 225 / 225 Balance -100 / -100 120 / 120 -225 / -225 Weight 100.2 kg - Attending Attestation I examined this patient and my medical decision-making was reviewed with the Resident Physician. I agree with the documented findings, disposition and treatment plan as described except to the extent set forth below. Patient seen and examined. Labs, radiology, chart personally reviewed. 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 Most likely patient has pneumonia postoperatively since he has fever plus productive cough and he also complained of some wheezing. Patient admitted he quit smoking only before his operation and COPD exacerbation in the differential diagnosis as well. He will be treated with empiric antibiotics and systemic steroid with bronchodilators. Cultures has been ordered and adjust antibiotic accordingly. This was discussed with the patient and also discussed with Dr. Butcher. We will continue follow-up and thank you for consultation.
--- NOTE | 2017-11-16 20:17 | Electrocardiograph Report ---
[address] [address] Test Date: 2017-11-15 Pat Name: Chris Ames Department: 110 Room: 2N12 Gender: M Manager Internal: : 1950 Requested By: Matthew Butcher Order Number: [id number] Reading MD: Linda Jolly Measurements Intervals [place] Rate: 121 P: [place]: 0 QRS: -17 QRSD: 119 T: 15 QT: 315 QTc: 387 Interpretive Statements ATRIAL FIBRILLATION WITH RAPID VENTRICULAR RESPONSE WITH ABERRANT CONDUCTION OR VENTRICULAR PREMATURE COMPLEXES MINIMAL VOLTAGE CRITERIA FOR LVH, CONSIDER NORMAL VARIANT INFERIOR MYOCARDIAL INFARCTION, OF INDETERMINATE AGE Electronically Signed On 11-16-2017 17:00:47 EDT by Linda Jolly
[2017-11-16] MEDS: Ipratropium/Albuterol Neb 3 ML IH SCH ×2 (20:18→23:39)
--- NOTE | 2017-11-16 20:18 | Electrocardiograph Report ---
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
[2017-11-16] MEDS: Budesonide/Formoterol 160/4.5 MDI IH SCH (20:26)
--- NOTE | 2017-11-16 21:10 | Electrocardiograph Report ---
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
[2017-11-17] MEDS: methylPREDNISolone 125 MG/2 ML VIAL IVP SCH ×3 (00:30→16:21)
[2017-11-17] MEDS: Furosemide 20 MG/2 ML VIAL IVP SCH ×2 (00:31→08:26)
[2017-11-17] MEDS: Piperacillin/Tazobactam 3.375 GM in 0.9 % Sodium Chloride Mini Bag 100 ML IVPB SCH ×3 (00:31→16:19)
[2017-11-17] MEDS: *HR* OxyCODONE/APAP 5/325 TABLET PO PRN ×4 (02:35→17:37)
[2017-11-17] MEDS: Ipratropium/Albuterol Neb 3 ML IH SCH ×6 (04:06→23:48)
[2017-11-17 05:03] LABS: Basophils % 0.1 %; Hematocrit 31.7 % (37.5-50.1); Hemoglobin 10.8 g/dL (12.9-16.9); Immature Granulocytes % 0.7 % (0-4); Lymphocytes # 0.6 K/mcL (0.6-4.6); Mean Corpuscular HGB Conc 34.1 g/dL (31.6-35.5); Mean Corpuscular Hemoglobin 30.3 pg (28.0-33.3); Mean Corpuscular Volume 88.8 fL (83.0-100.0); Mean Platelet Volume 10.3 fL (9.4-12.4); Monocytes # 0.5 K/mcL (0.0-1.3); Monocytes % 2.7 %; Neutrophils # 17.8 K/mcL (1.6-8.9); Platelet Count 186 K/mcL (140-400); Red Blood Count 3.57 M/mcL (4.19-5.50); Red Cell Distribution Width 14.3 % (11.5-14.5); Segmented Neutrophils % 93.5 %
[2017-11-17] MEDS: Amiodarone Premix 360 MG/200 ML BAG IVC SCH (05:28)
[2017-11-17] MEDS: *HR* Heparin 5,000 UNIT/ML VIAL SQ SCH ×2 (05:29→17:36)
--- NOTE | 2017-11-17 08:24 | Pulmonology Progress Note ---
<DaleDaren M - Last Filed: 11/17/17 08:34> Date of Encounter: 11/17/17 Objective PUL Vital signs: Last Vital Signs Temp 99.0 F 11/17/17 07:34 Pulse 85 11/17/17 07:34 Resp 16 11/17/17 07:36 BP 142/106 11/17/17 07:34 Pulse Ox 91 11/17/17 07:36 Results - Laboratory Findings CBC and BMP: 11/17/17 04:48 11/16/17 03:20 ABG ABG pH 7.44 pH Units (7.32-7.45) 11/14/17 19:21 ABG pCO2 41 mmHg (35-45) 11/14/17 19:21 ABG pO2 76 mmHg (85-104) L 11/14/17 19:21 ABG O2 Saturation 96 % (95-98) 11/14/17 19:21 PT/INR, D-dimer PT 13.5 Seconds (9.4-12.1) H 11/15/17 04:05 Abnormal lab findings: Abnormal lab results WBC 19.0 K/mcL (4.3-11.1) H 11/17/17 04:48 RBC 3.57 M/mcL (4.19-5.50) L 11/17/17 04:48 Hgb 10.8 g/dL (12.9-16.9) L 11/17/17 04:48 Hct 31.7 % (37.5-50.1) L 11/17/17 04:48 Neutrophils # 17.8 K/mcL (1.6-8.9) H 11/17/17 04:48 PT 13.5 Seconds (9.4-12.1) H 11/15/17 04:05 ABG pO2 76 mmHg (85-104) L 11/14/17 19:21 ABG Total CO2 29 mEq/L (20-26) H 11/14/17 19:21 ABG Hematocrit 26.0 % (37.5-50.1) L 11/14/17 11:20 Potassium 3.0 mEq/L (3.5-5.3) L 11/14/17 11:20 Glucose 149 mg/dL (60-95) H 11/14/17 11:20 Sodium 134 mEq/L (136-145) L 11/16/17 03:20 Glucose 161 mg/dL (70-105) H 11/16/17 03:20 POC Glucose 128 mg/dL (70-99) H 11/16/17 19:13 - Microbiology Findings Microbiology Findings: Microbiology, Last 48 Hours 11/16/17 17:55 Sputum Culture - Final Sputum 11/16/17 16:46 Blood Culture - Preliminary Peripheral Venipuncture Culture is incubating and being continuously monitored for growth. Final report to follow. 11/16/17 16:46 Blood Culture - Preliminary Peripheral Venipuncture Culture is incubating and being continuously monitored for growth. Final report to follow. - Clinical Findings Intake & Output: Intake & Output 11/16/17 11/17/17 11/17/17 23:59 07:59 15:59 Intake Total 500 / 500 200 / 200 Output Total 425 / 425 200 / 200 Balance 75 / 75 0 / 0 Consult Discharge Plan - Plan Referrals: Pedro Valdez CNP [Primary Care Provider] - 11/28/17 1:15 pm ( ) Lisandro Bragg MD [Partnered Physician] - 12/15/17 1:00 pm Luis Alva DO [Partnered Physician] - (Office will call patient at home with follow up appointment) - Attending Attestation I examined this patient and my medical decision-making was reviewed with the Resident Physician. I agree with the documented findings, disposition and treatment plan as described except to the extent set forth below. Patient seen and examined. Labs, radiology, chart personally reviewed. 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 Patient seen and examined and there is some improvement clinically. Discussed with Dr. Bragg. Continue noninvasive ventilation. Cardiovascular: Patient with A. fib post CABG GI: Nutrition per dietary and GI prophylaxis per routine Heme: DVT prophylaxis per routine ID: Continue antibiotics and plan to de-escalation Renal; urine out put and renal funtion reviewed. Decrease Lasix dose Endorcine: blood glucose is monitored Lines: all lines checked and no evidence of infections Skin: skin care to prevent pressure ulcers per nursing routine care <Heather Colemana - Last Filed: 11/17/17 11:15> Date of Encounter: 11/17/17 Time of Encounter: 08:23 Assessment and Plan (1) Acute respiratory failure with hypoxemia Current Visit: Yes Status: Acute Suspected secondary to pneumonia. Chest x-ray today does not show any improvement. There is continued opacity in the right lower lung lobe. Urged him to use the spirometer and continue BiPAP for oxygenation. He is on 15 liters of oxygen and oxygen saturation is 87%. Continue duonebs and added mucomyst to help with congestion. (2) Pneumonia Current Visit: Yes Status: Acute Possible pneumonia per chest x-ray. Repeat chest x-ray today stills looks concerning for pneumonia. His temperature is 99 today. Sputum culture has not shown any growth. Blood cultures have not shown any growth. Does not meet criteria for sepsis and lactic acid is within normal limits. Continue zosyn Q8 day 2. Encouraged to continue using incentive spirometry. Mucomyst added as there is wheezing and a productive cough. Qualifiers: Pneumonia type: due to unspecified organism Laterality: unspecified laterality Lung location: unspecified part of lung Qualified Code(s): J18.9 - Pneumonia, unspecified organism (3) COPD exacerbation Current Visit: Yes Status: Acute He does not have a formal COPD diagnosis but has significant history of smoking and per auscultation expiratory wheezing is appreciated at all lung lobes. Continue scheduled duonebs, symbicort and IV solumedrol 60 mg Q8. (4) Coronary artery disease Current Visit: No Status: Acute Status post coronary artery bypass grafting, managed by cardiothoracic surgery. He is on dual antiplatelet therapy. Qualifiers: Coronary Disease-Associated Artery/Lesion type: [place] artery [place] vs. transplanted heart: [place] heart Associated angina: without angina Qualified Code(s): I25.10 - Atherosclerotic heart disease of [place] coronary artery without angina pectoris (5) A-fib Current Visit: Yes Status: Acute New onset a fib two days ago. Cardiothoracic is managaging it. Was on IV amiodarone and will be transitioned to oral amiodarone according to chart review. Qualifiers: Atrial fibrillation type: paroxysmal Qualified Code(s): I48.0 - Paroxysmal atrial fibrillation Subjective Principal diagnosis: Dyspnea Interval history: Mr. Ames is a fourth day status post cardiothoracic surgery and was seen this morning. He was sitting in a chair and eating his breakfast. He complained of ongoing shortness of breath and productive cough. He stated at times he is unable to bring up his sputum but the sputum is brown in color. He is not on home oxygen and is requiring 15 liters of oxygen. He developed transient a fib two days ago and was on IV amiodarone managed by cardiothoracic and will be switched to oral amiodarone. This morning he also stated he Objective PUL Vital signs: Last Vital Signs Temp 99.0 F 11/17/17 07:34 Pulse 85 11/17/17 07:34 Resp 16 11/17/17 07:36 BP 142/106 11/17/17 07:34 Pulse Ox 91 11/17/17 07:36 Results - Laboratory Findings CBC and BMP: 11/17/17 04:48 11/17/17 07:55 ABG ABG pH 7.44 pH Units (7.32-7.45) 11/14/17 19:21 ABG pCO2 41 mmHg (35-45) 11/14/17 19:21 ABG pO2 76 mmHg (85-104) L 11/14/17 19:21 ABG O2 Saturation 96 % (95-98) 11/14/17 19:21 PT/INR, D-dimer PT 13.5 Seconds (9.4-12.1) H 11/15/17 04:05 Abnormal lab findings: Abnormal lab results WBC 19.0 K/mcL (4.3-11.1) H 11/17/17 04:48 RBC 3.57 M/mcL (4.19-5.50) L 11/17/17 04:48 Hgb 10.8 g/dL (12.9-16.9) L 11/17/17 04:48 Hct 31.7 % (37.5-50.1) L 11/17/17 04:48 Neutrophils # 17.8 K/mcL (1.6-8.9) H 11/17/17 04:48 PT 13.5 Seconds (9.4-12.1) H 11/15/17 04:05 ABG pO2 76 mmHg (85-104) L 11/14/17 19:21 ABG Total CO2 29 mEq/L (20-26) H 11/14/17 19:21 ABG Hematocrit 26.0 % (37.5-50.1) L 11/14/17 11:20 Potassium 3.0 mEq/L (3.5-5.3) L 11/14/17 11:20 Glucose 149 mg/dL (60-95) H 11/14/17 11:20 Sodium 134 mEq/L (136-145) L 11/16/17 03:20 Glucose 161 mg/dL (70-105) H 11/16/17 03:20 POC Glucose 128 mg/dL (70-99) H 11/16/17 19:13 - Microbiology Findings Microbiology Findings: Microbiology, Last 48 Hours 11/16/17 17:55 Sputum Culture - Final Sputum 11/16/17 16:46 Blood Culture - Preliminary Peripheral Venipuncture Culture is incubating and being continuously monitored for growth. Final report to follow. 11/16/17 16:46 Blood Culture - Preliminary Peripheral Venipuncture Culture is incubating and being continuously monitored for growth. Final report to follow. - Clinical Findings Intake & Output: Intake & Output 11/16/17 11/17/17 11/17/17 23:59 07:59 15:59 Intake Total 500 / 500 200 / 200 Output Total 425 / 425 200 / 200 Balance 75 / 75 0 / 0 - VTE Documentation of Mechanical Device: Graduated compression elastic hosiery
[2017-11-17] MEDS: Aspirin Enteric Coated 81 MG Tablet PO SCH (08:26)
[2017-11-17] MEDS: Lisinopril 20 MG TABLET PO SCH (08:27)
[2017-11-17] MEDS: amLODIPine 5 MG TABLET PO SCH (08:27)
[2017-11-17] MEDS: Chlorhexidine Rinse 15 ML MOUTHWASH MM SCH ×2 (08:27→20:31)
[2017-11-17] MEDS: Metoprolol XL (24 HR) Succ 50 MG TAB.ER.24H PO SCH (08:27)
[2017-11-17] MEDS: hydroCHLOROthiazide 25 MG TABLET PO SCH (08:27)
[2017-11-17] MEDS: Insulin LISPRO 300 UNITS/3 ML VIAL SQ SCH ×4 (08:29→20:34)
--- NOTE | 2017-11-17 08:49 | Cardiothoracic Progress Note ---
Date of Encounter: 11/17/17 Time of Encounter: 08:47 - Assessment and plan (1) Coronary artery disease Current Visit: No Status: Acute We will stop the IV Lasix as there are no signs of fluid overload. The patient is on daily hydrochlorothiazide. This will allow his secretions to be more easily mobilized. We will switch the patient from IV to by mouth amiodarone. We will continue to treat the patient's respiratory status with BiPAP, pulmonary toilet and antibiotics. Qualifiers: Coronary Disease-Associated Artery/Lesion type: [place] artery [place] vs. transplanted heart: [place] heart Associated angina: without angina Qualified Code(s): I25.10 - Atherosclerotic heart disease of [place] coronary artery without angina pectoris - Subjective Interval history: The patient's dyspnea is improving. He is still requiring BiPAP to maintain his oxygen saturations. He is tolerating a diet Vital Signs, Last 4 Hours Temp Pulse Resp BP Pulse Ox 11/17/17 07:36 16 91 11/17/17 07:34 99.0 F 85 19 142/106 90 11/17/17 06:00 82 141/84 11/17/17 05:00 82 121/78 Oxgy[place] Flow Rate Oxygen Flow Rate (LPM) 15 Clinical Data, last 8 Hours Output, Urine Amount 200 Weight 11/15/17 11/16/17 11/17/17 23:59 23:59 23:59 Weight 100.4 kg 100.2 kg Lungs have scattered rhonchi. Heart is in a normal sinus rhythm on an amiodarone drip. All incisions are healing well without signs of infection and the sternum is stable. Chest x-ray reveals persistent infiltrate. - Labs 11/17/17 04:48 11/16/17 03:20 Lab Results, Last 24 hours 11/17/17 04:48 WBC 19.0 H Hgb 10.8 L Hct 31.7 L Plt Count 186 - VTE Documentation of Mechanical Device: Graduated compression elastic hosiery Consult Discharge Plan - Plan Referrals: Pedro Valdez CNP [Primary Care Provider] - 11/28/17 1:15 pm ( ) Lisandro Bragg MD [Partnered Physician] - 12/15/17 1:00 pm Luis Alva DO [Partnered Physician] - (Office will call patient at home with follow up appointment)
[2017-11-17 08:55] LABS: BUN/Creatinine Ratio 23 (6-26); Blood Urea Nitrogen 27 mg/dL (8-23); Calcium 8.8 mg/dL (8.6-10.3); Carbon Dioxide 27 mEq/L (23-29); Chloride 97 mEq/L (98-107); Glucose 192 mg/dL (70-105); Osmolality,Calculated 284 (280-300); Potassium 3.8 mEq/L (3.5-5.1); Sodium 132 mEq/L (136-145); eGFR For Non-African Americans > 60 (> 60)
[2017-11-17] MEDS: *HR* Amiodarone 200 MG TABLET PO SCH ×2 (09:55→20:31)
[2017-11-17] MEDS: Budesonide/Formoterol 160/4.5 MDI IH SCH ×2 (10:58→19:57)
[2017-11-17] MEDS: Acetylcysteine 10% 2 ML INHSOL IH SCH ×4 (11:01→23:48)
[2017-11-18] MEDS: methylPREDNISolone 125 MG/2 ML VIAL IVP SCH ×2 (00:04→08:23)
[2017-11-18] MEDS: Piperacillin/Tazobactam 3.375 GM in 0.9 % Sodium Chloride Mini Bag 100 ML IVPB SCH ×2 (00:05→08:23)
[2017-11-18] MEDS: Ipratropium/Albuterol Neb 3 ML IH SCH ×6 (03:49→23:55)
[2017-11-18] MEDS: Acetylcysteine 10% 2 ML INHSOL IH SCH ×4 (03:50→16:52)
[2017-11-18 03:58] LABS: Basophils % 0.1 %; Hematocrit 30.4 % (37.5-50.1); Hemoglobin 10.6 g/dL (12.9-16.9); Immature Granulocytes % 0.9 % (0-4); Lymphocytes # 0.8 K/mcL (0.6-4.6); Lymphocytes % 3.4 %; Mean Corpuscular HGB Conc 34.9 g/dL (31.6-35.5); Mean Corpuscular Hemoglobin 31.1 pg (28.0-33.3); Mean Corpuscular Volume 89.1 fL (83.0-100.0); Mean Platelet Volume 10.4 fL (9.4-12.4); Monocytes # 0.8 K/mcL (0.0-1.3); Monocytes % 3.5 %; Platelet Count 240 K/mcL (140-400); Red Blood Count 3.41 M/mcL (4.19-5.50); Red Cell Distribution Width 14.3 % (11.5-14.5); Segmented Neutrophils % 92.1 %
[2017-11-18 04:09] LABS: Neutrophils # 21.4 K/mcL (1.6-8.9)
[2017-11-18] MEDS: *HR* OxyCODONE/APAP 5/325 TABLET PO PRN ×3 (04:17→21:42)
[2017-11-18 04:21] LABS: BUN/Creatinine Ratio 32 (6-26); Blood Urea Nitrogen 38 mg/dL (8-23); Calcium 8.7 mg/dL (8.6-10.3); Carbon Dioxide 25 mEq/L (23-29); Chloride 97 mEq/L (98-107); Glucose 202 mg/dL (70-105); Osmolality,Calculated 291 (280-300); Sodium 133 mEq/L (136-145); eGFR For Non-African Americans > 60 (> 60)
[2017-11-18 04:31] LABS: Platelet Estimate Normal (Normal)
[2017-11-18] MEDS: *HR* Heparin 5,000 UNIT/ML VIAL SQ SCH ×2 (06:15→16:34)
[2017-11-18] MEDS: Budesonide/Formoterol 160/4.5 MDI IH SCH ×2 (07:52→19:58)
--- NOTE | 2017-11-18 07:53 | Cardiothoracic Progress Note ---
Date of Encounter: 11/18/17 Time of Encounter: 07:25 - Assessment and plan (1) Coronary artery disease Current Visit: No Status: Acute The patient is recovering well from his CABG 3. His respiratory status is improving and his need for supplemental oxygen is decreasing. Currently is on O2 4 L/m via nasal cannula. He began ambulating in the hallways chest today without difficulty. The patient will continue with aggressive pulmonary toilet and ambulation. The assessment and plan as outlined above was discussed with the patient and/or family members who expressed understanding and agreement. All questions were answered. Qualifiers: Coronary Disease-Associated Artery/Lesion type: [place] artery [place] vs. transplanted heart: [place] heart Associated angina: without angina Qualified Code(s): I25.10 - Atherosclerotic heart disease of [place] coronary artery without angina pectoris - Subjective Procedure(s) Performed: POD#4 S/P CABG3 Interval history: The patient remained hemodynamic stable overnight. He began ambulating in the hallways last evening. He has no complaints. Vital Signs, Last 4 Hours Temp Pulse Resp BP Pulse Ox 11/18/17 07:19 98.5 F 82 18 107/69 90 Oxgyen Flow Rate Oxygen Flow Rate (LPM) 4 Clinical Data, last 8 Hours Output, Urine Amount 0 Output, Urine Amount 240 Weight 11/16/17 11/17/17 11/18/17 23:59 23:59 23:59 Weight 100.2 kg 99.2 kg - Physical Examination General: Conversant, No Apparent Distress Neck: No JVD, Normal carotid pulses Cardiac: Reg Rate and Rhythm, Normal S1 and S2, No Murmur Incision: No signs of infection, Dry/intact dressing Sternum: Stable Lungs: Normal Breath Sounds, No Wheeze, Rales, Rhonchi Neuro: Alert and responsive, No focal deficits noted Vascular: Normal capillary refill Extremities: No Clubbing, No Cyanosis, No Edema - Labs 11/18/17 03:38 11/18/17 03:38 Lab Results, Last 24 hours 11/17/17 11/18/17 11/18/17 07:55 03:38 03:38 WBC 23.2 H Hgb 10.6 L Hct 30.4 L Plt Count 240 Sodium 132 L 133 L Potassium 3.8 3.0 L Chloride 97 L 97 L Carbon Dioxide 27 25 BUN 27 H 38 H Creatinine 1.20 1.20 Glucose 192 H 202 H Calcium 8.8 8.7 - Imaging Chest Xray: image reviewed (No pneumothorax. Left basilar atelectasis.) - VTE Documentation of Mechanical Device: Graduated compression elastic hosiery Consult Discharge Plan - Plan Referrals: Pedro Valdez CNP [Primary Care Provider] - 11/28/17 1:15 pm ( ) Lisandro Bragg MD [Partnered Physician] - 12/15/17 1:00 pm Luis Alva DO [Partnered Physician] - (Office will call patient at home with follow up appointment)
[2017-11-18] MEDS: Lisinopril 20 MG TABLET PO SCH (08:19)
[2017-11-18] MEDS: Metoprolol XL (24 HR) Succ 50 MG TAB.ER.24H PO SCH (08:21)
[2017-11-18] MEDS: *HR* Amiodarone 200 MG TABLET PO SCH ×2 (08:22→21:42)
[2017-11-18] MEDS: Aspirin Enteric Coated 81 MG Tablet PO SCH (08:22)
[2017-11-18] MEDS: amLODIPine 5 MG TABLET PO SCH (08:22)
[2017-11-18] MEDS: hydroCHLOROthiazide 25 MG TABLET PO SCH (08:22)
[2017-11-18] MEDS: Insulin LISPRO 300 UNITS/3 ML VIAL SQ SCH ×4 (08:22→21:44)
[2017-11-18] MEDS: Chlorhexidine Rinse 15 ML MOUTHWASH MM SCH ×2 (08:22→21:42)
--- NOTE | 2017-11-18 08:45 | Pulmonology Progress Note ---
<KylerDaren gilmore M - Last Filed: 11/18/17 09:50> Date of Encounter: 11/18/17 Objective PUL Vital signs: Last Vital Signs Temp 98.5 F 11/18/17 07:19 Pulse 82 11/18/17 07:19 Resp 18 11/18/17 07:56 BP 107/69 11/18/17 07:19 Pulse Ox 91 11/18/17 07:56 Results - Laboratory Findings CBC and BMP: 11/18/17 03:38 11/18/17 03:38 ABG ABG pH 7.44 pH Units (7.32-7.45) 11/14/17 19:21 ABG pCO2 41 mmHg (35-45) 11/14/17 19:21 ABG pO2 76 mmHg (85-104) L 11/14/17 19:21 ABG O2 Saturation 96 % (95-98) 11/14/17 19:21 PT/INR, D-dimer PT 13.5 Seconds (9.4-12.1) H 11/15/17 04:05 Abnormal lab findings: Abnormal lab results WBC 23.2 K/mcL (4.3-11.1) H 11/18/17 03:38 RBC 3.41 M/mcL (4.19-5.50) L 11/18/17 03:38 Hgb 10.6 g/dL (12.9-16.9) L 11/18/17 03:38 Hct 30.4 % (37.5-50.1) L 11/18/17 03:38 Neutrophils # 21.4 K/mcL (1.6-8.9) H 11/18/17 03:38 PT 13.5 Seconds (9.4-12.1) H 11/15/17 04:05 ABG pO2 76 mmHg (85-104) L 11/14/17 19:21 ABG Total CO2 29 mEq/L (20-26) H 11/14/17 19:21 ABG Hematocrit 26.0 % (37.5-50.1) L 11/14/17 11:20 Potassium 3.0 mEq/L (3.5-5.3) L 11/14/17 11:20 Glucose 149 mg/dL (60-95) H 11/14/17 11:20 Sodium 133 mEq/L (136-145) L 11/18/17 03:38 Potassium 3.0 mEq/L (3.5-5.1) L 11/18/17 03:38 Chloride 97 mEq/L (98-107) L 11/18/17 03:38 BUN 38 mg/dL (8-23) H 11/18/17 03:38 BUN/Creatinine Ratio 32 (6-26) H 11/18/17 03:38 Glucose 202 mg/dL (70-105) H 11/18/17 03:38 POC Glucose 207 mg/dL (70-99) H 11/17/17 19:58 - Microbiology Findings Microbiology Findings: Microbiology, Last 48 Hours 11/17/17 02:30 Sputum Culture - Preliminary Sputum 11/16/17 17:55 Sputum Culture - Final Sputum 11/16/17 16:46 Blood Culture - Preliminary Peripheral Venipuncture Culture is incubating and being continuously monitored for growth. Final report to follow. 11/16/17 16:46 Blood Culture - Preliminary Peripheral Venipuncture Culture is incubating and being continuously monitored for growth. Final report to follow. - Clinical Findings Intake & Output: Intake & Output 11/17/17 11/18/17 11/18/17 23:59 07:59 15:59 Intake Total 740 / 740 350 / 350 480 / 480 Output Total 400 / 400 240 / 240 Balance 340 / 340 110 / 110 480 / 480 Weight 99.2 kg Consult Discharge Plan - Plan Referrals: Pedro Valdez CNP [Primary Care Provider] - 11/28/17 1:15 pm ( ) Lisandro Bragg MD [Partnered Physician] - 12/15/17 1:00 pm Luis Alva DO [Partnered Physician] - (Office will call patient at home with follow up appointment) - Attending Attestation I examined this patient and my medical decision-making was reviewed with the Resident Physician. I agree with the documented findings, disposition and treatment plan as described except to the extent set forth below. Patient seen and examined. Labs, radiology, chart personally reviewed. 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 Start taper off steroid and can change antibiotic to oral for total of 7 days. Patient can follow up as outpatient after discharge from the hospital. Thanks for consultation. <JaredHeather lisaa - Last Filed: 11/18/17 14:06> Date of Encounter: 11/18/17 Time of Encounter: 08:45 Assessment and Plan (1) Acute respiratory failure with hypoxemia Current Visit: Yes Status: Acute Secondary to pneumonia. Chest x-ray today shows less blunting of left costophrenic angle. There is diffuse opacity bilateral lung lobes. He is using the spirometer and should continue to use it daily. Good saturation on 4 liters of oxygen, continue to wean. Continue duonebs and mucomyst. (2) Pneumonia Current Visit: Yes Status: Acute Improving. Less lobar consolidation when compared to yesterday's chest xray. Diffuse opacity which can be due to COPD exacerbation. Repeat chest x-ray today shows improvement. Afebrile overnight. Sputum culture has not shown any growth. Blood cultures have not shown any growth. Does not meet criteria for sepsis and lactic acid is within normal limits. Received 2 days of zosyn and one dose this morning, he will be de-escalated to augmentin for 7 days because clinically he is improving, requiring less supplemental oxygen and n wheezing appreciated upon auscultation. Spoke with Mr. Ames concerning his penicillin allergy and he stated he had an allergic reaction to penicillin more than 20 years ago and with his recent use of zosyn did not have any rashes. He is informed that if he does have any symptoms he can alert us. Continue incentive spirometry and mucomyst. Qualifiers: Pneumonia type: due to unspecified organism Laterality: unspecified laterality Lung location: unspecified part of lung Qualified Code(s): J18.9 - Pneumonia, unspecified organism (3) COPD exacerbation Current Visit: Yes Status: Acute He does not have a formal COPD diagnosis but has significant history of smoking and may have had underlying COPD. Continue scheduled duonebs, symbicort. Received 3 days of IV solumedrol and will de-escalate to 40 mg oral for the 5 days. (4) Coronary artery disease Current Visit: No Status: Acute Status post coronary artery bypass grafting, managed by cardiothoracic surgery. He is on dual antiplatelet therapy. Qualifiers: Coronary Disease-Associated Artery/Lesion type: [place] artery [place] vs. transplanted heart: [place] heart Associated angina: without angina Qualified Code(s): I25.10 - Atherosclerotic heart disease of [place] coronary artery without angina pectoris (5) A-fib Current Visit: Yes Status: Acute New onset a fib three days ago. Cardiothoracic is managing it. Was on IV amiodarone and has been transitioned to oral amiodarone. Qualifiers: Atrial fibrillation type: paroxysmal Qualified Code(s): I48.0 - Paroxysmal atrial fibrillation Subjective Principal diagnosis: Dyspnea Interval history: Mr. Ames is a fifth day status post cardiothoracic surgery and was seen this morning. He was sitting in a chair and eating his breakfast. He stated his shortness of breath is improving and mucomyst is helping expel out the sputum. Today he is on 4 liters of oxygen and his saturation is 91%. He developed transient a fib two days ago and today has been transitioned to oral amiodarone managed by cardiothoracic surgery. He denies fever, chills, nausea and stated he has not had a bowel movement but is passing flatulence. Objective PUL Vital signs: Last Vital Signs Temp 98.5 F 11/18/17 07:19 Pulse 82 11/18/17 07:19 Resp 18 11/18/17 07:56 BP 107/69 11/18/17 07:19 Pulse Ox 91 11/18/17 07:56 General appearance: no acute distress ENT: oropharynx moist Auscultation: left: rhonchi (moderate rhonchi left upper lung lobe) Cardiovascular: regular rate and rhythm Gastrointestinal: normoactive bowel sounds Extremities: pulses normal, other (pallor, trace edema) Musculoskeletal: other (brace in left lower leg ) mood appropriate, affect normal Results - Laboratory Findings CBC and BMP: 11/18/17 03:38 11/18/17 03:38 ABG ABG pH 7.44 pH Units (7.32-7.45) 11/14/17 19:21 ABG pCO2 41 mmHg (35-45) 11/14/17 19:21 ABG pO2 76 mmHg (85-104) L 11/14/17 19:21 ABG O2 Saturation 96 % (95-98) 11/14/17 19:21 PT/INR, D-dimer PT 13.5 Seconds (9.4-12.1) H 11/15/17 04:05 Abnormal lab findings: Abnormal lab results WBC 23.2 K/mcL (4.3-11.1) H 11/18/17 03:38 RBC 3.41 M/mcL (4.19-5.50) L 11/18/17 03:38 Hgb 10.6 g/dL (12.9-16.9) L 11/18/17 03:38 Hct 30.4 % (37.5-50.1) L 11/18/17 03:38 Neutrophils # 21.4 K/mcL (1.6-8.9) H 11/18/17 03:38 PT 13.5 Seconds (9.4-12.1) H 11/15/17 04:05 ABG pO2 76 mmHg (85-104) L 11/14/17 19:21 ABG Total CO2 29 mEq/L (20-26) H 11/14/17 19:21 ABG Hematocrit 26.0 % (37.5-50.1) L 11/14/17 11:20 Potassium 3.0 mEq/L (3.5-5.3) L 11/14/17 11:20 Glucose 149 mg/dL (60-95) H 11/14/17 11:20 Sodium 133 mEq/L (136-145) L 11/18/17 03:38 Potassium 3.0 mEq/L (3.5-5.1) L 11/18/17 03:38 Chloride 97 mEq/L (98-107) L 11/18/17 03:38 BUN 38 mg/dL (8-23) H 11/18/17 03:38 BUN/Creatinine Ratio 32 (6-26) H 11/18/17 03:38 Glucose 202 mg/dL (70-105) H 11/18/17 03:38 POC Glucose 207 mg/dL (70-99) H 11/17/17 19:58 - Microbiology Findings Microbiology Findings: Microbiology, Last 48 Hours 11/17/17 02:30 Sputum Culture - Preliminary Sputum 11/16/17 17:55 Sputum Culture - Final Sputum 11/16/17 16:46 Blood Culture - Preliminary Peripheral Venipuncture Culture is incubating and being continuously monitored for growth. Final report to follow. 11/16/17 16:46 Blood Culture - Preliminary Peripheral Venipuncture Culture is incubating and being continuously monitored for growth. Final report to follow. - Clinical Findings Intake & Output: Intake & Output 11/17/17 11/18/17 11/18/17 23:59 07:59 15:59 Intake Total 740 / 740 350 / 350 Output Total 400 / 400 240 / 240 Balance 340 / 340 110 / 110 Weight 99.2 kg - VTE Documentation of Mechanical Device: Graduated compression elastic hosiery
[2017-11-19] MEDS: *HR* OxyCODONE/APAP 5/325 TABLET PO PRN (03:43)
[2017-11-19] MEDS: Ipratropium/Albuterol Neb 3 ML IH SCH ×3 (04:07→11:44)
[2017-11-19] MEDS: *HR* Heparin 5,000 UNIT/ML VIAL SQ SCH (05:48)
[2017-11-19 07:16] LABS: Basophils % 0.1 %; Hemoglobin 9.5 g/dL (12.9-16.9); Immature Granulocytes % 0.7 % (0-4); Lymphocytes # 2.4 K/mcL (0.6-4.6); Lymphocytes % 12.4 %; Mean Corpuscular HGB Conc 33.9 g/dL (31.6-35.5); Mean Corpuscular Hemoglobin 29.9 pg (28.0-33.3); Mean Corpuscular Volume 88.1 fL (83.0-100.0); Mean Platelet Volume 9.8 fL (9.4-12.4); Monocytes # 1.4 K/mcL (0.0-1.3); Monocytes % 7.2 %; Neutrophils # 15.2 K/mcL (1.6-8.9); Platelet Count 304 K/mcL (140-400); Red Blood Count 3.18 M/mcL (4.19-5.50); Red Cell Distribution Width 14.5 % (11.5-14.5); Segmented Neutrophils % 79.6 %
[2017-11-19 07:35] LABS: BUN/Creatinine Ratio 37 (6-26); Blood Urea Nitrogen 42 mg/dL (8-23); Calcium 8.5 mg/dL (8.6-10.3); Carbon Dioxide 25 mEq/L (23-29); Chloride 103 mEq/L (98-107); Glucose 147 mg/dL (70-105); Osmolality,Calculated 297 (280-300); Potassium 3.1 mEq/L (3.5-5.1); Sodium 137 mEq/L (136-145); eGFR For Non-African Americans > 60 (> 60)
[2017-11-19 07:52] VITALS: BP 127/72
[2017-11-19] MEDS: Budesonide/Formoterol 160/4.5 MDI IH SCH (07:55)
[2017-11-19] MEDS: Insulin LISPRO 300 UNITS/3 ML VIAL SQ SCH ×2 (08:17→12:24)
[2017-11-19] MEDS: Chlorhexidine Rinse 15 ML MOUTHWASH MM SCH (08:53)
[2017-11-19] MEDS: *HR* Amiodarone 200 MG TABLET PO SCH (08:53)
[2017-11-19] MEDS: Aspirin Enteric Coated 81 MG Tablet PO SCH (08:53)
[2017-11-19] MEDS: Lisinopril 20 MG TABLET PO SCH (08:53)
[2017-11-19] MEDS: amLODIPine 5 MG TABLET PO SCH (08:53)
[2017-11-19] MEDS: Metoprolol XL (24 HR) Succ 50 MG TAB.ER.24H PO SCH (08:54)
[2017-11-19] MEDS: hydroCHLOROthiazide 25 MG TABLET PO SCH (08:54)
[2017-11-19] MEDS ORDERED: predniSONE 20 MG TABLET PO SCH (09:00)
--- NOTE | 2017-11-19 12:42 | Discharge Summary ---
Orders not resulted at time of discharge: Pending orders 11/04/17 17:37 Red Blood Cells [BBK] Routine 11/16/17 16:46 Culture,Blood [BC] Stat 11/20/17 04:00 BMP [Basic Metabolic Panel] AM 0400 CBC [Complete Blood Count] [HEME] AM 0400 Date of Encounter: 11/19/17 Time of Encounter: 12:39 - Discharge Diagnosis (1) Coronary artery disease Priority: Primary Status: Acute Qualifiers: Coronary Disease-Associated Artery/Lesion type: [place] artery [place] vs. transplanted heart: [place] heart Associated angina: without angina Qualified Code(s): I25.10 - Atherosclerotic heart disease of [place] coronary artery without angina pectoris - Hospital Course Hospital course: Mr. Ames is a 67 year old male who underwent a CABG 4 on 11/14/[address] Lisandro Bragg. He had an uneventful postoperative course but did develop Atrial fibrillation and was placed on Amiodarone. He also developed evidence of pneumonia and was treated with steroids antibiotics. His clinical course improved and on he was doing well clinically and had been weaned off oxygen. His saturations were greater than 92% on room air. His bowels were working. His wounds were clean and dry. His case was discussed with the pulmonary service who agree he was appropriate for d/c home. - Time Spent with Patient Total time spent providing and/or coordinating discharge services: - Discharge Medications Home Medications: Amlodipine Besylate 10 mg PO DAILY 11/04/17 [History] Aspirin [Lo-Dose Aspirin EC] 81 mg PO DAILY 11/04/17 [History] Clopidogrel [Plavix] 75 mg PO DAILY 11/04/17 [History] Lisinopril [Zestril] 40 mg PO DAILY 11/04/17 [History] Metoprolol XL (24 HR) Succ [Toprol XL] 50 mg PO DAILY 11/04/17 [History] hydroCHLOROthiazide [Hydrochlorothiazide] 25 mg PO DAILY 11/04/17 [History] Nitroglycerin [Nitrostat] 0.4 mg SL Q5M PRN MDD 3 DOSES CALL 911 11/14/17 [ History] Rosuvastatin [Crestor] 20 mg PO HS 11/14/17 [History] Allergies/Adverse Reactions: 3 Allergy/AdvReac Type Severity Reaction Status Date / Time Penicillins [PCN] AdvReac Rash Verified 11/14/17 07:03 Date of admission: 11/14/17 09:00 Primary care physician: Pedro Valdez CNP Consults: 11/14/17 11:44 Consult to Cardiac Rehabilitation-Phase1 [CONS] Routine Comment: Reason for Consult: Post open heart Call Completed: Yes Consult to Bench Lay Out Technician [CONS] Routine Reason for SW Consult: open heart 11/15/17 08:21 Consult for Pharmacy Education [CONS] Routine Reason for Consult: Post-Op Heart Call Completed: Yes Consult to Occupational Therapy [CONS] Routine Comment: Evaluate, develop and implement POC Reason for Consult: Post-Op Heart Does patient have active BEDREST order?: No Is patient medically & hemodynamically stable?: Yes Consult to Physical Therapy [CONS] Routine Comment: Evaluate, develop and implement POC Reason for Consult: Post open heart Does patient have active BEDREST order?: No Is patient medically & hemodynamically stable?: Yes 11/16/17 16:03 Consult to Pulmonology [CONS] Routine Consulting Provider: [facility] Reason for Consult: Post-operative respiratory distress Time Notified: 16:01 Call Completed: Yes Procedure(s) Performed: Coronary artery bypass revascularization 4 on 11/14/2017 Discharging clinician: Joseluis Cruz Anticipated date of discharge: 11/19/17 Physical Examination Vital Signs, Last 4 Hours Temp Pulse Resp BP Pulse Ox 11/19/17 11:47 98.2 F 77 16 127/72 100 11/19/17 11:44 16 95 11/19/17 08:45 98.2 F 78 16 127/72 91 Other: Sternum, intact, clean and dry without drainage - Patient Status Disposition: Home Health Service Condition: Good Functional capacity at discharge: independent ambulation Overall status at discharge: patient is progressing back to baseline - Discharge Instructions Instructions: Doxycycline (By mouth), Prednisone (By mouth), Atrial Fibrillation (DC), Coronary Artery Bypass Graft (DC), Chronic Obstructive Pulmonary Disease (DC), Pneumonia (DC), Coronary Artery Bypass Graft, 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
--- NOTE | 2017-11-19 13:05 | Physician Discharge Referral ---
Home Health/Hosp Referral Info Transfer to: Home Health - Diagnosis (1) Coronary artery disease Priority: Primary Status: Acute - Respiratory Orders Smoking Cessation: Smoking cessation has been advised. For more information, call the [place] Tobacco Quit Line at 7-229-WSXQ-NOW. - Services Needed Following services are medically necessary services: Nursing, Physical Therapy, Occupational Therapy - Transfer Medications Home Medications: Amlodipine Besylate 10 mg PO DAILY 11/04/17 [History] Aspirin [Lo-Dose Aspirin EC] 81 mg PO DAILY 11/04/17 [History] Clopidogrel [Plavix] 75 mg PO DAILY 11/04/17 [History] Lisinopril [Zestril] 40 mg PO DAILY 11/04/17 [History] Metoprolol XL (24 HR) Succ [Toprol XL] 50 mg PO DAILY 11/04/17 [History] hydroCHLOROthiazide [Hydrochlorothiazide] 25 mg PO DAILY 11/04/17 [History] Nitroglycerin [Nitrostat] 0.4 mg SL Q5M PRN MDD 3 DOSES CALL 911 11/14/17 [ History] Rosuvastatin [Crestor] 20 mg PO HS 11/14/17 [History] Allergies/Adverse Reactions: 3 Allergy/AdvReac Type Severity Reaction Status Date / Time Penicillins [PCN] AdvReac Rash Verified 11/14/17 07:03 Certification: Further, I certify that my clinical findings support that this patient is homebound (i.e. absences from home require considerable and taxing effort and are for medical reasons or hinduism services or infrequently or short duration when for other reasons) because: Homebound Reason: Post-surgery restriction and or conditions limit ability to leave home Attestation: My signature below is to certify that this patient is under my care and that I, or nurse practitioner, or a physician's research lab assistant working with me, has a face-to -face encounter with this patient.
== END 2017-11-19 17:15 | disposition home health service (06) | DRG 235 ==
LOC: SAMDAY 06:34 → ICNU 09:00 → 2NNU 11-15 19:34
PROVIDERS: ADMIT Thoracic Surgery (Cardiothoracic Vascular Surgery); ATTEND Thoracic Surgery (Cardiothoracic Vascular Surgery)